=== PATIENT | male | born 1970 | race African-American/Black ===

== ENCOUNTER 2016-12-14 15:39 | Emergency (ER) | payer OTHER ==
[2016-12-14 15:55] VITALS: BP 140/74; PULSE 85; TEMP 98.4; BMI 24.2
--- NOTE | 2016-12-14 16:48 | PDOC ---
History of Present Illness - General Chief Complaint: Eye Problem Stated Complaint: RT EYE PAIN, HEADACHE Time Seen by Provider: 12/14/16 16:18 History Source: Patient Exam Limitations: Language Barrier - History of Present Illness Initial Comments: 12/14/16 16:45 CHIEF COMPLAINT: Right eye pressure HISTORY OF PRESENT ILLNESS: Patient is a 45-year-old male, smoker, no significant medical history currently on no medication reports he woke up this a.m. with right eye discomfort felt it itchy was rubbing his eye then felt pressure to his eye. He started he became dizzy, fell forward did not hit his head however felt spasm to left side of neck. Patient denies any neurosensory deficits, no visual disturbance, is seeing everything clearly does not wear corrective lenses. Visual acuity is 20/20. Patient denies any eye discharge. Denies any trauma. Positive intermittent photophobia. REVIEW OF SYSTEMS: GENERAL/CONSTITUTIONAL: No fever or chills. No weakness. No weight change. HEAD, EYES, EARS, NOSE AND THROAT: Right eye pressure . Drainage and pruritus to right eye. No ear pain or discharge. No sore throat. RESPIRATORY: No cough, wheezing, or hemoptysis. SKIN : No rash or easy bruising. NEUROLOGIC: Patient with mild right-sided headache, vertigo. HEMATOLOGIC/LYMPHATIC: No lymphadenopathy ALLERGIC/IMMUNOLOGIC: No hives or skin allergy. No latex allergy. PHYSICAL EXAM: GENERAL: The patient is awake, alert, and fully oriented, in no acute distress. HEAD: Normal with no signs of trauma. EYES: Pupils equal, round and reactive to light, extraocular movements intact, sclera anicteric, conjunctiva mildly injected to right lateral eye, extending to limbus after fluorescein staining, no corneal abrasion noted. No nystagmus ENT: Ears normal, nares patent, oropharynx clear without exudates. Moist mucous membranes. NECK: Normal range of motion, supple without lymphadenopathy, JVD, or masses. LUNGS: Breath sounds equal, clear to auscultation bilaterally. No wheezes, and no crackles. NEUROLOGICAL: Cranial nerves II through XII grossly intact. Normal speech, normal gait. SKIN: No erythema no facial edema. Warm, Dry, normal turgor, no rashes or lesions noted. 12/14/16 17:57 Past History - Past Medical History Allergies/Adverse Reactions: Allergies Allergy/AdvReac Type Severity Reaction Status Date / Time No Known Allergies Allergy Verified 12/14/16 17:25 Home Medications: Ambulatory Orders Polymyxin B Sulf/Trimethoprim [Polymyxin B-Tmp Eye Drops] 2 drop OD Q6H #1 drops 12/14/16 Other medical history: DENIES - Immunization History Immunization Up to Date: Yes - Suicide/Smoking/Psychosocial Hx Smoking History: Never smoked Number of Cigarettes Smoked Daily: 4 Information on smoking cessation initiated: No Hx Alcohol Use: No Drug/Substance Use Hx: No Substance Use Type: None *Physical Exam - Vital Signs Last Vital Signs Temp Pulse Resp BP Pulse Ox 98.4 F 85 16 140/74 98 12/14/16 15:52 12/14/16 15:52 12/14/16 15:52 12/14/16 15:52 12/14/16 15:52 ED Treatment Course - RADIOLOGY Radiology Studies Ordered: Category Date Time Status HEAD CT WITHOUT CONTRAST [CT] Stat CT Scan 12/14/16 16:41 Ordered Medical Decision Making - Medical Decision Making 12/14/16 16:58 A/P: Patient with right sided eye pressure, also complaining of episode of dizziness today making him unbalanced falling forward, sudden onset this a.m. denies any head injury or LOC. Will perform head CT to rule out acute intracranial pathology due to dizziness, sudden onset spoke to Dr. Brewster who states no eye disorder can cause dizziness, rule out neurological disorder sent to office tomorrow for evaluation of eye. Awaiting CT of head results, patient is refusing Toradol for left lateral neck pain once Motrin by mouth. 12/14/16 17:53 CT is negative for acute intracranial pathology, will DC Patient with strict follow-up tomorrow with Dr. Brewster. DC on polymyxin. I discussed the physical exam findings, ancillary test results and final diagnoses with the patient. I answered all of the patient's questions. The patient was satisfied with the care received and felt comfortable with the discharge plan and treatment plan. The patient will call to arrange follow-up and will return to the Emergency Department with any new, persistent or worsening symptoms. *DC/Admit/Observation/Transfer Diagnosis at time of Disposition: Eye pain Qualifiers: Laterality: right Qualified Code(s): H57.11 - Ocular pain, right eye; H57.11 - Ocular pain, right eye - Discharge Dispostion Disposition: HOME Condition at time of disposition: Good Admit: No - Prescriptions Prescriptions: Polymyxin B Sulf/Trimethoprim [Polymyxin B-Tmp Eye Drops] 2 drop OD Q6H #1 drops - Referrals Referrals: Angie Brewster MD [Staff Physician] - - Patient Instructions Additional Instructions: Please follow-up in the office of Dr. Brewster tomorrow at 11:15 AM.
[2016-12-14] MEDS ORDERED: IBUPROFEN 600 MG TABLET (FP) PO ONE (16:59)
== END 2016-12-14 18:02 | disposition home or self-care (01) ==
LOC: JERFT 15:39
DX: H57.11 Ocular pain, right eye (principal); F17.210 Nicotine dependence, cigarettes, uncomplicated
CPT/HCPCS: 70450-TC; 99281-25

== ENCOUNTER 2017-02-07 11:34 | Emergency (ER) | payer OTHER ==
[2017-02-07 11:42] VITALS: BP 124/62; PULSE 102; TEMP 98.5; BMI 24.2
[2017-02-07] MEDS ORDERED: ACETAMINOPHEN 500 MG TABLET (FP) PO ONE (12:50)
--- NOTE | 2017-02-07 12:50 | PDOC ---
History of Present Illness - General Chief Complaint: Cold Symptoms Stated Complaint: VOMITING, HEADACHES Time Seen by Provider: 02/07/17 12:36 History Source: Patient Exam Limitations: No Limitations - History of Present Illness Initial Comments: 02/07/17 12:53 Chief complaint: Fever, chills, sore throat, cough, nausea, sweating, headache since last night and diarrhea and one episode vomiting this am History of Present Illness: Pt. is a 46 y/o male with significant medical history complaining of sudden onset of fever chills, diaphoresis, sore throat, dry cough, nausea, since yesterday with vomiting this morning and one episode of diarrhea today. Patient denies any shortness of breath or difficulty breathing. Patient denies any current abdominal discomfort is slightly nauseous. Patient denies having any influenza vaccine. 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 She also reports having severe body aches with sweating. Timing/Duration: intermittent (since yesterday ) Severity: moderate Associated Symptoms: reports: cough, fever/chills, headaches, loss of appetite, malaise, nausea/vomiting (today), other (myalgia ) Past History - Past Medical History Allergies/Adverse Reactions: Allergies Allergy/AdvReac Type Severity Reaction Status Date / Time No Known Allergies Allergy Verified 02/07/17 11:42 Home Medications: Ambulatory Orders Oseltamivir Phosphate [Tamiflu] 75 mg PO BID #10 capsule 02/07/17 COPD: No - Immunization History Immunization Up to Date: Yes - Suicide/Smoking/Psychosocial Hx Smoking History: Current every day smoker Number of Cigarettes Smoked Daily: 3 Information on smoking cessation initiated: Yes 'Breaking Loose' booklet given: 02/07/17 Hx Alcohol Use: No Drug/Substance Use Hx: No Substance Use Type: None Review of Systems - Review of Systems Able to Perform ROS?: Yes Constitutional: Yes: Fever, Loss of Appetite, Malaise, Night Sweats HEENTM: Yes: Throat Pain Respiratory: Yes: Cough. No: Shortness of Breath, SOB with Exertion, SOB at Rest, Stridor, Wheezing, Productive cough Cardiac (ROS): No: Symptoms Reported ABD/GI: Yes: Nausea, Vomiting : No: Symptoms Reported Musculoskeletal: No: Symptoms Reported Integumentary: No: Symptoms Reported Neurological: Yes: Headache *Physical Exam - Vital Signs Last Vital Signs Temp Pulse Resp BP Pulse Ox 98.5 F 102 H 20 124/62 100 02/07/17 11:39 02/07/17 11:39 02/07/17 11:39 02/07/17 11:39 02/07/17 11:39 - Physical Exam General Appearance: Yes: Appropriately Dressed HEENT: positive: EOMI, BIRTTANY, TMs Normal, Pharyngeal Erythema, Tonsillar Erythema (with no uvular deviation ), Nasal Congestion. negative: Tonsillar Exudate Neck: negative: Lymphadenopathy (R), Lymphadenopathy (L) Respiratory/Chest: positive: Lungs Clear, Normal Breath Sounds. negative: Chest Tender, Respiratory Distress Cardiovascular: positive: Regular Rhythm, Regular Rate, S1, S2 Gastrointestinal/Abdominal: positive: Normal Bowel Sounds, Soft. negative: Tender, Organomegaly, Distended, Guarding, Rebound, Tenderness, Hepatomegaly, Spleenomegaly Integumentary: positive: Normal Color Neurologic: positive: chief sales officer II-XII NML intact, Fully Oriented, Alert, Normal Response, Respond to painful stimul, Responsive, Finger to Nose. negative: Numbness, Sensory Deficit Medical Decision Making - Medical Decision Making 02/07/17 12:56 Pt. is a 46 y/o male with significant medical history complaining of sudden onset of fever chills, diaphoresis, sore throat, dry cough, nausea, since yesterday with vomiting this morning and one episode of diarrhea today. Patient denies any shortness of breath or difficulty breathing. Patient denies any current abdominal discomfort is slightly nauseous. Patient denies having any influenza vaccine. 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 She also reports having severe body aches with sweating. R/O strep throat Symptoms most consistent with influenza chills, fever, diaphoresis, dry cough, headache, and diaphoresis Plan: Throat C&S rapid negative acetaminophen 1000 mg by mouth now Zofran 4 mg sl now 02/07/17 13:38 will treat with tamiflu 75 mg bid for 5 days *DC/Admit/Observation/Transfer Diagnosis at time of Disposition: Influenza-like illness - Discharge Dispostion Disposition: HOME Condition at time of disposition: Stable - Referrals - Patient Instructions Additional Instructions: Ibuprofen or acetaminophen as needed as directed by indoor sports centre manager for fever or body aches Rest and drink plenty of fluids and foods as tolerated Return to emergency room if symptoms worsen or new symptoms develop any difficulty breathing or swallowing Patient voiced understanding of discharge instructions and all questions were answered - Post Discharge Activity Forms/Work/School Notes: Back to Work
[2017-02-07] MEDS ORDERED: ONDANSETRON *ODT* 4 MG TABLET SL ONE (12:51)
[2017-02-07] MEDS ORDERED: ACETAMINOPHEN 500 MG TABLET (FP) ONE (13:00)
[2017-02-07] MEDS ORDERED: ONDANSETRON *ODT* 4 MG TABLET ONE (13:00)
== END 2017-02-07 13:42 | disposition home or self-care (01) ==
LOC: JERFT 11:34
DX: J11.1 Influenza due to unidentified influenza virus with other respiratory manifestations (principal)
CPT/HCPCS: 87070; 87430; 99281-25

== ENCOUNTER 2017-03-14 09:30 | Emergency (ER) | payer OTHER ==
[2017-03-14 09:42] VITALS: BP 112/74; PULSE 100; TEMP 99.5; BMI 24.2
[2017-03-14] MEDS ORDERED: IBUPROFEN 600 MG TABLET (FP) PO ONE ×2 (11:13→11:24)
--- NOTE | 2017-03-14 11:18 | PDOC ---
History of Present Illness - General Chief Complaint: Cold Symptoms Stated Complaint: COUGH, HEADACHES Time Seen by Provider: 03/14/17 10:47 History Source: Patient Exam Limitations: No Limitations - History of Present Illness Initial Comments: 03/14/17 patient came for evaluation of fevers, MAXIMUM TEMPERATURE 102 yesterday, runny nose, earache and sore throat pain. States has runny nose that' s clear drainage, moist nonproductive cough and generalized body aches. 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 Has taken NyQuil with minimal resolved. Timing/Duration: reports: getting worse, yesterday Severity: reports: moderate, severe Associated Symptoms: reports: chest pain/soreness, cough, earache, facial pain, fever/chills, muscle aches, nasal congestion, nasal drainage, wheezing Past History - Travel Traveled outside of the country in the last 30 days: No Close contact w/someone who was outside of country & ill: No - Past Medical History Allergies/Adverse Reactions: Allergies Allergy/AdvReac Type Severity Reaction Status Date / Time No Known Allergies Allergy Verified 03/14/17 09:42 Home Medications: Ambulatory Orders Oseltamivir Phosphate [Tamiflu -] 75 mg PO BID #10 capsule 03/14/17 COPD: No - Immunization History Immunization Up to Date: Yes - Suicide/Smoking/Psychosocial Hx Smoking History: Current some day smoker Number of Cigarettes Smoked Daily: 3 Information on smoking cessation initiated: No 'Breaking Loose' booklet given: 02/07/17 Hx Alcohol Use: Yes (SOCIAL) Drug/Substance Use Hx: No Substance Use Type: None Review of Systems - Review of Systems Able to Perform ROS?: Yes Is the patient limited Tamazight proficient: Yes Constitutional: Yes: Symptoms Reported, See HPI, Chills, Fever, Loss of Appetite , Malaise HEENTM: Yes: Symptoms Reported Respiratory: Yes: Symptoms reported, See HPI, Cough. No: Wheezing Cardiac (ROS): No: Symptoms Reported Musculoskeletal: Yes: Symptoms Reported, See HPI Integumentary: Yes: Symptoms Reported, See HPI Neurological: Yes: Symptoms reported, See HPI, Headache All Other Systems: Reviewed and Negative *Physical Exam - Vital Signs Last Vital Signs Temp Pulse Resp BP Pulse Ox 99.5 F 100 H 20 112/74 99 03/14/17 09:40 03/14/17 09:40 03/14/17 09:40 03/14/17 09:40 03/14/17 09:40 - Physical Exam General Appearance: Yes: Nourished, Appropriately Dressed, Apparent Distress, Mild Distress HEENT: positive: TMs Normal, Pharyngeal Erythema (just but landmarks easily visualized), Tonsillar Erythema, Nasal Congestion, Rhinorrhea. negative: Pharynx Normal, Tonsillar Exudate Neck: positive: Tender, Supple, Lymphadenopathy (R), Lymphadenopathy (L) Respiratory/Chest: negative: Chest Tender, Lungs Clear, Normal Breath Sounds ( diminished, coarse and rattling breath sounds), Respiratory Distress Gastrointestinal/Abdominal: positive: Soft. negative: Normal Bowel Sounds, Tender Musculoskeletal: positive: Normal Inspection. negative: CVA Tenderness, Decreased Range of Motion, Vertebral Tenderness Extremity: positive: Normal Capillary Refill, Normal Inspection. negative: Normal Range of Motion Integumentary: positive: Normal Color, Warm, Pale Neurologic: positive: associate chemist II-XII NML intact, Fully Oriented, Alert, Normal Mood/ Affect, Normal Response, Motor Strength 07/07 Progress Note - Progress Note Progress Note: Probable influenza, will treat with Tamiflu *DC/Admit/Observation/Transfer Diagnosis at time of Disposition: Influenzal bronchitis - Discharge Dispostion Disposition: HOME Condition at time of disposition: Stable Admit: No - Prescriptions Prescriptions: Oseltamivir Phosphate [Tamiflu -] 75 mg PO BID #10 capsule - Referrals - Patient Instructions Printed Discharge Instructions: DI for Influenza -- Adult Additional Instructions: Rest, drink lots of fluids: Teas, water, soups, Pedialyte Saltwater gargles Steamy showers/seem to face break up mucus Old-fashioned treatments help! Avoid contact with others until fevers and cough resolved as this is very contagious Lots of handwashing and good hygiene Continue [id number] medications for symptomatic relief Tylenol or Motrin for fever and pain Take all of Tamiflu as directed: 1 tab every 12 hours for 5 days Followup with private physician in one to 2 days as needed or if worsening Return to emergency department for worsened symptoms, fevers, dehydration Influenza takes between 5 and 7 days for resolution To not participate in any activity, work, or school until fevers and cough are gone for at least one day - Post Discharge Activity Forms/Work/School Notes: Back to Work
== END 2017-03-14 11:34 | disposition home or self-care (01) ==
LOC: JERFT 09:30
DX: J11.1 Influenza due to unidentified influenza virus with other respiratory manifestations (principal)
CPT/HCPCS: 99281-25

== ENCOUNTER 2017-08-14 01:24 | Emergency (ER) | payer SELFPAY ==
--- NOTE | 2017-08-14 02:02 | PDOC ---
History of Present Illness - General Stated Complaint: SWELLING/PAIN,RT FINGER Time Seen by Provider: 08/14/17 02:01 - History of Present Illness Initial Comments: 08/14/17 02:16 Mr. Lehman is a 46 yo male w/ no significant pmh who presents for evaluation of painful swollen right middle finger. He reports it has been this way for 3-4 days. The patient denies chest pain, shortness of breath, headache and dizziness. Denies fever, chills, nausea, vomit, diarrhea and constipation. Denies dysuria, frequency, urgency and hematuria. Allergies: NKDA Past History - Past Medical History Allergies/Adverse Reactions: Allergies Allergy/AdvReac Type Severity Reaction Status Date / Time No Known Allergies Allergy Verified 08/14/17 02:13 Home Medications: Ambulatory Orders Oseltamivir Phosphate [Tamiflu -] 75 mg PO BID #10 capsule 03/14/17 Amoxicillin/Potassium Clav [Augmentin 875-125 Tablet] 1 each PO BID #14 tablet 08/14/17 COPD: No - Immunization History Immunization Up to Date: Yes - Suicide/Smoking/Psychosocial Hx Smoking History: Current some day smoker Number of Cigarettes Smoked Daily: 3 'Breaking Loose' booklet given: 02/07/17 Hx Alcohol Use: Yes (SOCIAL) Drug/Substance Use Hx: No Substance Use Type: None Review of Systems - Review of Systems Comments:: 08/14/17 02:19 GENERAL/CONSTITUTIONAL: No fever or chills. No weakness. HEAD, EYES, EARS, NOSE AND THROAT: No change in vision. No ear pain or discharge. No sore throat. CARDIOVASCULAR: No chest pain or shortness of breath RESPIRATORY: No cough, wheezing, or hemoptysis. GASTROINTESTINAL: No nausea, vomiting, diarrhea or constipation. GENITOURINARY: No dysuria, frequency, or change in urination. MUSCULOSKELETAL: +Right middle finger pain/swelling SKIN: No rash NEUROLOGIC: No headache, vertigo, loss of consciousness, or change in strength/ sensation. ENDOCRINE: No increased thirst. No abnormal weight change HEMATOLOGIC/LYMPHATIC: No anemia, easy bleeding, or history of blood clots. ALLERGIC/IMMUNOLOGIC: No hives or skin allergy. *Physical Exam - Physical Exam Comments: 08/14/17 02:20 GENERAL: Awake, alert, and fully oriented, in no acute distress HEAD: No signs of trauma, normocephalic, atraumatic EYES: PERRLA, EOMI, sclera anicteric, conjunctiva clear ENT: Auricles normal inspection, hearing grossly normal, nares patent, oropharynx clear without exudates. Moist mucosa NECK: Normal ROM, supple, no lymphadenopathy, JVD, or masses LUNGS: No distress, speaks full sentences, clear to auscultation bilaterally HEART: Regular rate and rhythm, normal S1 and S2, no murmurs, rubs or gallops, peripheral pulses normal and equal bilaterally. ABDOMEN: Soft, nontender, normoactive bowel sounds. No guarding, no rebound. No masses EXTREMITIES: +Distal right third phalange mildly swollen on medial side and TTP. Otherwise normal inspection, Normal range of motion, no edema. No clubbing or cyanosis. NEUROLOGICAL: Cranial nerves II through XII grossly intact. Normal speech, normal gait, no focal sensorimotor deficits SKIN: Warm, Dry, normal turgor, no rashes or lesions noted. Medical Decision Making - Medical Decision Making 08/14/17 02:21 Mr. Lehman is a 46 yo male w/ pmh as described who presents for evaluation of symptoms consistent w/ paronychia. No abscess identified. Augmentin started in ER and Rx sent to patient's pharmacy for further treatment. Discharging patient to home for outpatient follow-up. *DC/Admit/Observation/Transfer Diagnosis at time of Disposition: Paronychia - Discharge Dispostion Disposition: HOME - Referrals - Patient Instructions Printed Discharge Instructions: DI for Paronychia Additional Instructions: Take all antibiotics as described. Follow-up with primary care provider later this week for further evaluation. Return to ER if any increase in pain, fever, chills, or other concerning symptoms. - Post Discharge Activity
[2017-08-14 02:13] VITALS: BP 109/65; PULSE 73; TEMP 98.8; BMI 25.8
--- NOTE | 2017-08-14 02:15 | PDOC ---
Attending Attestation - Resident Resident Name: Donnie Guallpa - ED Attending Attestation I have performed the following: I have examined & evaluated the patient, The case was reviewed & discussed with the resident, I agree w/resident's findings & plan, Exceptions are as noted - HPI HPI: 08/14/17 20:18 pain and swelling of right middle finger for 3-4 days. - Physicial Exam PE: 08/14/17 20:19 *Physical Exam General Appearance: Yes: Appropriately Dressed. No: Apparent Distress, Intoxicated HEENT: positive: EOMI, BRITTANY, Normal ENT Inspection, Normal Voice, TMs Normal, Pharynx Normal. negative: Pale Conjunctivae, Photophobia, Scleral Icterus (R), Scleral Icterus (L) Neck: positive: Trachea midline, Normal Thyroid, Supple. negative: Tender, Rigid, Carotid bruit, Stridor, Lymphadenopathy (R), Lymphadenopathy (L), Thyromegaly Respiratory/Chest: positive: Lungs Clear, Normal Breath Sounds. negative: Chest Tender, Respiratory Distress, Accessory Muscle Use, Labored Respiration, RES, Crackles, Rales, Rhonchi, Stridor, Wheezing, Dullness Cardiovascular: positive: Regular Rhythm, Regular Rate, S1, S2. negative: Edema , JVD, Murmur, Bradycardia, Tachycardia Vascular Pulses: Dorsalis-Pedis (R): 2+, Doralis-Pedis (L): 2+ Gastrointestinal/Abdominal: positive: Normal Bowel Sounds, Flat, Soft. negative : Tender, Organomegaly, Pulsatile Mass, Increased Bowel Sounds, Decreased BS, Distended, Guarding, Rebound, Hernia, Hepatomegaly, Spleenomegaly Lymphatic: negative: Adenopathy, Tenderness Musculoskeletal: positive: swelling of distal right middle finger negative: CVA Tenderness, Decreased Range of Motion Extremity: positive: Normal Capillary Refill, Normal Inspection, Normal Range of Motion, Pelvis Stable. negative: Tender, Pedal Edema, Swelling, Erythema Integumentary: positive: Normal Color, Dry, Warm. negative: Cyanotic, Erythema , Jaundice, Rash Neurologic: positive: employment law attorney II-XII NML intact, Fully Oriented, Alert, Normal Mood/ Affect, Motor Strength 5/5. negative: EOM Palsy, Facial Droop, Sensory Deficit 08/14/17 20:19 - Medical Decision Making 08/14/17 20:18 Pt treated and released
[2017-08-14] MEDS ORDERED: AMOX TR/POT CLAV 875MG/125MG TABLETS (FP) PO ONE (02:23)
[2017-08-14] MEDS ORDERED: AMOX TR/POT CLAV 875MG/125MG TABLETS (FP) ONE (02:43)
== END 2017-08-14 02:40 | disposition home or self-care (01) ==
LOC: JER 01:24
DX: L03.011 Cellulitis of right finger (principal)
CPT/HCPCS: 99281-25